=== PATIENT | female | born 1985 | race American Indian/Alaskan Native ===

== ENCOUNTER 2021-05-02 06:13 | Emergency (ER) | payer SELFPAY ==
[2021-05-02 07:04] LABS: Bilirubin,Urine NEG (Negative); Blood,Urine NEG (Negative); Color,Urine Yellow (Yellow); Mucus,Urine 1+ /HPF; Protein,Urine <15 mg/dL mg/dL (Negative); Urobilinogen,Urine < 2.0 mg/dL (<2.0)
[2021-05-02 07:49] LABS: Basophils % (Auto) 0.3 % (0.0-1.8); Eosinophils % (Auto) 0.1 % (0.0-4.3); Hematocrit 39.2 % (30.3-42.9); Hemoglobin 13.1 gm/dl (10.1-14.3); Lymphocytes # (Auto) 1.2 K/mm3 (1.2-5.4); Lymphocytes % (Auto) 10.5 % (13.4-35.0); Mean Corpuscular HGB Conc 33 % (30-34); Mean Corpuscular Volume 92 fl (79-97); Monocytes # (Auto) 0.4 K/mm3 (0.0-0.8); Monocytes % (Auto) 3.9 % (0.0-7.3); Platelet Count 187 K/mm3 (140-440); Red Blood Count 4.24 M/mm3 (3.65-5.03); Red Cell Distribution Width 13.8 % (13.2-15.2)
[2021-05-02 08:17] LABS: Alanine Aminotransferase 8 units/L (7-56); Albumin 4.5 g/dL (3.9-5); Blood Urea Nitrogen 10 mg/dL (7-17); Hemolysis Index 22
[2021-05-02] MEDS ORDERED: MORPHINE 4 MG/1 ML INJ IV ONE (08:19)
[2021-05-02] MEDS ORDERED: ONDANSETRON 4 MG/2 ML INJ IV ONE (08:19)
--- NOTE | 2021-05-02 08:23 | Emergency Department Report ---
<OSITOANNETTE - Last Filed: 05/04/21 06:23> ED General Adult HPI - General Chief complaint: Abdominal Pain Stated complaint: RT LOWER ABD PAIN/SWEATS/SOB Time Seen by Provider: 05/02/21 08:19 Source: patient Mode of arrival: Ambulatory Limitations: No Limitations - History of Present Illness Initial comments: 35-year-old -[place] female patient presents with complaints of right lower abdominal pain x2 days. Patient states the pain suddenly began to worsen last night and started radiating to her right flank area. She rates her current pain as 8/10 in severity states it worsens with movement and ambulation. No p ast medical history per patient. Past surgical history of the abdomen includes a . She denies any fever/chills/sweats, cough, shortness of breath, chest pain, diarrhea, melena/hematochezia, dysuria, hematuria, vaginal discharge/bleeding, or dyspareunia. Patient does admit to urinary frequency. OTC pain medications are not helping per patient. - Related Data Previous Rx's Medication Instructions Recorded Last Taken Type Acetaminophen/Codeine [Tylenol 1 tab PO Q8H PRN #8 tab 05/02/21 Unknown Rx /Codeine # 3 tab] Doxycycline Monohydrate 100 mg PO BID 14 Days #28 capsule 05/02/21 Unknown Rx [Doxycycline Monohydrate CAP] Ibuprofen [Motrin 800 MG tab] 800 mg PO Q8HR PRN #20 tablet 05/02/21 Unknown Rx metroNIDAZOLE [Flagyl TAB] 500 mg PO Q12HR 7 Days #14 tab 05/02/21 Unknown Rx Allergies Allergy/AdvReac Type Severity Reaction Status Date / Time No Known Allergies Allergy Unverified 05/02/21 06:28 ED Review of Systems Constitutional: denies: chills, diaphoresis, fever, malaise, weakness Respiratory: denies: cough, shortness of breath Cardiovascular: denies: chest pain Gastrointestinal: abdominal pain. denies: nausea, vomiting, diarrhea, constipation, hematemesis, melena, hematochezia Genitourinary: frequency. denies: urgency, dysuria, hematuria, discharge, abnormal menses Musculoskeletal: as per HPI Skin: denies: change in color Neurological: denies: headache Hematological/Lymphatic: denies: swollen glands ED Past Medical Hx - Past Medical History Previous Medical History?: No - Surgical History Past Surgical History?: No - Social History Smoking Status: Current Every Day Smoker Substance Use Type: None - Medications Home Medications: Home Medications Medication Instructions Recorded Confirmed Last Taken Type Acetaminophen/Codeine [Tylenol 1 tab PO Q8H PRN #8 tab 05/02/21 Unknown Rx /Codeine # 3 tab] Doxycycline Monohydrate 100 mg PO BID 14 Days #28 capsule 05/02/21 Unknown Rx [Doxycycline Monohydrate CAP] Ibuprofen [Motrin 800 MG tab] 800 mg PO Q8HR PRN #20 tablet 05/02/21 Unknown Rx metroNIDAZOLE [Flagyl TAB] 500 mg PO Q12HR 7 Days #14 tab 05/02/21 Unknown Rx ED Physical Exam - General Limitations: No Limitations General appearance: alert, in no apparent distress - Head Head exam: Present: atraumatic, normocephalic - Eye Eye exam: Present: normal appearance - ENT ENT exam: Present: mucous membranes moist - Neck Neck exam: Present: normal inspection - Respiratory Respiratory exam: Present: normal lung sounds bilaterally. Absent: respiratory distress - Cardiovascular Cardiovascular Exam: Present: regular rate, normal rhythm - GI/Abdominal GI/Abdominal exam: Present: soft, distended (Mild), tenderness (Right lower quadrant, periumbilical), normal bowel sounds. Absent: guarding, rebound, r igid, mass, pulsatile mass - Extremities Exam Extremities exam: Present: full ROM - Back Exam Back exam: Absent: CVA tenderness (R), CVA tenderness (L) - Neurological Exam Neurological exam: Present: alert, oriented X3, normal gait - Psychiatric Psychiatric exam: Present: normal affect, normal mood - Skin Skin exam: Present: warm, dry, intact, normal color. Absent: rash ED Medical Decision Making - Lab Data Result diagrams: 05/02/21 07:35 05/02/21 07:35 Lab Results 05/02/21 05/02/21 05/02/21 Range/Units 07:35 07:35 07:35 WBC 11.3 H (4.5-11.0) K/mm3 RBC 4.24 (3.65-5.03) M/mm3 Hgb 13.1 (10.1-14.3) gm/dl Hct 39.2 (30.3-42.9) % MCV 92 (79-97) fl MCH 31 (28-32) pg MCHC 33 (30-34) % RDW 13.8 (13.2-15.2) % Plt Count 187 (140-440) K/mm3 Lymph % (Auto) 10.5 L (13.4-35.0) % [place] % (Auto) 3.9 (0.0-7.3) % Eos % (Auto) 0.1 (0.0-4.3) % Baso % (Auto) 0.3 (0.0-1.8) % Lymph # (Auto) 1.2 (1.2-5.4) K/mm3 [place] # (Auto) 0.4 (0.0-0.8) K/mm3 Eos # (Auto) 0.0 (0.0-0.4) K/mm3 Baso # (Auto) 0.0 (0.0-0.1) K/mm3 Seg Neutrophils % 85.2 H (40.0-70.0) % Seg Neutrophils # 9.6 H (1.8-7.7) K/mm3 Sodium 139 (137-145) mmol/L Potassium 4.5 (3.6-5.0) mmol/L Chloride 105.2 (98-107) mmol/L Carbon Dioxide 25 (22-30) mmol/L Anion Gap 13 mmol/L BUN 10 (7-17) mg/dL Creatinine 0.7 (0.6-1.2) mg/dL Estimated GFR > 60 ml/min BUN/Creatinine Ratio 14 % Glucose 111 H (65-100) mg/dL Calcium 9.0 (8.4-10.2) mg/dL Total Bilirubin 0.20 (0.1-1.2) mg/dL AST 15 (5-40) units/L ALT 8 (7-56) units/L Alkaline Phosphatase 47 (35-129) units/L Total Protein 6.5 (6.3-8.2) g/dL Albumin 4.5 (3.9-5) g/dL Albumin/Globulin Ratio 2.3 % Lipase (13-60) units/L HCG, Qual Negative (Negative) Urine Color (Yellow) Urine Turbidity (Clear) Urine pH (5.0-7.0) Ur Specific [place] (1.003-1.030) Urine Protein (Negative) mg/dL Urine Glucose (UA) (Negative) mg/dL Urine Ketones (Negative) mg/dL Urine Blood (Negative) Urine Nitrite (Negative) Urine Bilirubin (Negative) Urine Urobilinogen (<2.0) mg/dL Ur Leukocyte Esterase (Negative) Urine WBC (Auto) (0.0-6.0) /HPF Urine RBC (Auto) (0.0-6.0) /HPF U Epithel Cells (Auto) (0-13.0) /HPF Urine Mucus /HPF 05/02/21 05/02/21 Range/Units 07:35 Unknown WBC (4.5-11.0) K/mm3 RBC (3.65-5.03) M/mm3 Hgb (10.1-14.3) gm/dl Hct (30.3-42.9) % MCV (79-97) fl MCH (28-32) pg MCHC (30-34) % RDW (13.2-15.2) % Plt Count (140-440) K/mm3 Lymph % (Auto) (13.4-35.0) % [place] % (Auto) (0.0-7.3) % Eos % (Auto) (0.0-4.3) % Baso % (Auto) (0.0-1.8) % Lymph # (Auto) (1.2-5.4) K/mm3 [place] # (Auto) (0.0-0.8) K/mm3 Eos # (Auto) (0.0-0.4) K/mm3 Baso # (Auto) (0.0-0.1) K/mm3 Seg Neutrophils % (40.0-70.0) % Seg Neutrophils # (1.8-7.7) K/mm3 Sodium (137-145) mmol/L Potassium (3.6-5.0) mmol/L Chloride (98-107) mmol/L Carbon Dioxide (22-30) mmol/L Anion Gap mmol/L BUN (7-17) mg/dL Creatinine (0.6-1.2) mg/dL Estimated GFR ml/min BUN/Creatinine Ratio % Glucose (65-100) mg/dL Calcium (8.4-10.2) mg/dL Total Bilirubin (0.1-1.2) mg/dL AST (5-40) units/L ALT (7-56) units/L Alkaline Phosphatase (35-129) units/L Total Protein (6.3-8.2) g/dL Albumin (3.9-5) g/dL Albumin/Globulin Ratio % Lipase 26 (13-60) units/L HCG, Qual (Negative) Urine Color Yellow (Yellow) Urine Turbidity Clear (Clear) Urine pH 5.0 (5.0-7.0) Ur Specific [place] 1.024 (1.003-1.030) Urine Protein <15 mg/dl (Negative) mg/dL Urine Glucose (UA) Neg (Negative) mg/dL Urine Ketones Neg (Negative) mg/dL Urine Blood Neg (Negative) Urine Nitrite Neg (Negative) Urine Bilirubin Neg (Negative) Urine Urobilinogen < 2.0 (<2.0) mg/dL Ur Leukocyte Esterase Neg (Negative) Urine WBC (Auto) 2.0 (0.0-6.0) /HPF Urine RBC (Auto) 1.0 (0.0-6.0) /HPF U Epithel Cells (Auto) 3.0 (0-13.0) /HPF Urine Mucus 1+ /HPF - Radiology Data Radiology results: report reviewed CT abdomen pelvis w con INDICATION: acute RLQ pain X2DAYS [id number] 100ML. COMPARISON: None TECHNIQUE: Abdominal and pelvic CT exam performed. All CT scans at this location are performed using CT dose reduction for ALARA by means of automated exposure control. FINDINGS: CT ABDOMEN and PELVIS: Lung Bases: No significant abnormality. Liver: No significant abnormality. Biliary: No significant abnormality. Spleen: No significant abnormality. Pancreas: No significant abnormality. Adrenals: No significant abnormality. Kidneys: No significant abnormality. Lymphatics: No lymphadenopathy. Vasculature: No significant abnormality. Bowel: No significant abnormality. Appendix is not well visualized. There is tubular region of air in the right lower quadrant which is thought to represent the appendix. No right lower quadrant stranding to suggest appendicitis. Pelvis: Small quantity of free fluid in the pelvis, likely physiologic. Nonspecific region of hypoattenuation within the right fundal region of the uterus could be related to mild dilation of the intramural portion of the fallopian tube. Right ovarian follicle Osseous Structures: No aggressive osseous lesion. Additional Findings: None IMPRESSION: 1. Hypoattenuating region within the right fundal portion of the uterus is nonspecific but could be related to mild dilation of the intramural portion of the fallopian tube. Correlate with ultrasound pelvis. Overall, no significant abnormality. US transvaginal, US pelvic complete INDICATION / CLINICAL INFORMATION: RLQ pain, abnormal CT. TECHNIQUE: Transabdominal and Transvaginal. Duplex Color Doppler used: Yes. COMPARISON: CT earlier same day FINDINGS: UTERUS: Measures 10.4 x 6.4 x 7.8 cm. -Endometrial stripe measures 1.3 cm. - Mass lesions: The previously described hypoattenuating region described on prior CT in the uterus corresponds an anechoic 1.6 cm lesion with through transmission. RIGHT ADNEXA: No significant ovarian cyst or mass. Normal color Doppler blood flow. LEFT ADNEXA: No significant ovarian cyst or mass. Normal color Doppler blood flow. URINARY BLADDER: No significant abnormality. FREE FLUID: None. ADDITIONAL FINDINGS: There are small hernia superior to the umbilicus in the region of patient's palpable concern. IMPRESSION: 1. Previously described abnormality on CT is most consistent with a myometrial cyst which is most likely related to cystic degeneration of a leiomyoma. Otherwise, no significant abnormality. 2. Small ventral wall abdominal hernias. - Medical Decision Making 35-year-old -[place] female patient presents with complaints of right lower abdominal pain x2 days. Patient states the pain suddenly began to worsen last night and started radiating to her right flank area. She rates her current pain as 8/10 in severity states it worsens with movement and ambulation. No p ast medical history per patient. Past surgical history of the abdomen includes a . She denies any fever/chills/sweats, cough, shortness of breath, chest pain, diarrhea, melena/hematochezia, dysuria, hematuria, vaginal discharge/bleeding, or dyspareunia. Patient does admit to urinary frequency. OTC pain medications are not helping per patient. Significant right lower quadrant tenderness to palpation noted on exam. Mildly elevated white count noted at 11.3. No significant abnormalities noted on CMP or UA. CT abdomen showed the following: Hypoattenuating region within the right fundal portion of the uterus is nonspecific but could be related to mild dilation of the intramural portion of the fallopian tube. Correlate with ultrasound pelvis. Overall, no significant abnormality. Given results ultrasound was performed of the pelvis and showed 1. Previously described abnormality on CT is most consistent with a myometrial cyst which is most likely related to cystic degeneration of a leiomyoma. Otherwise, no significant abnormality. Trichomonas noted on exam. Will treat for PID and cover patient for gonorrhea and chlamydia. Flagyl and doxy given for home. She is to follow-up with her [facility] in 2 to 3 days. Patient is well-appearing, her vitals are within normal limits, she is stable for discharge home. Discussed in great detail signs and symptoms that should prompt immediate return to the emergency department with patient who verbalizes understanding peer ED Disposition Clinical Impression: Trichomonal cervicitis, PID (acute pelvic inflammatory disease), Endometrial cyst of ovary Disposition: DC-01 TO HOME OR SELFCARE Is pt being admited?: No Condition: Stable Instructions: Ovarian Cyst, Trichomoniasis, Pelvic Inflammatory Disease, Abdominal Pain (ED) Prescriptions: Doxycycline Monohydrate [Doxycycline Monohydrate CAP] 100 mg PO BID 14 Days #28 capsule metroNIDAZOLE [Flagyl TAB] 500 mg PO Q12HR 7 Days #14 tab Ibuprofen [Motrin 800 MG tab] 800 mg PO Q8HR PRN #20 tablet PRN Reason: pain Acetaminophen/Codeine [Tylenol /Codeine # 3 tab] 1 tab PO Q8H PRN #8 tab PRN Reason: Pain , Severe (7-10) Referrals: PRIMARY CARE, [Primary Care Provider] - 3-5 Days [facility] [Provider Group] - 2-3 Days Forms: STI Treatment and Prevention <JOSE ANTONIO SADLER - Last Filed: 05/06/21 11:52> ED Review of Systems ROS: Stated complaint: RT LOWER ABD PAIN/SWEATS/SOB Other details as noted in HPI ED Course Vital Signs 05/02/21 05/02/21 05/02/21 06:34 08:50 13:09 Temperature 98.1 F Pulse Rate 58 L Respiratory 18 16 16 Rate Blood Pressure 137/75 Blood Pressure [Right] O2 Sat by Pulse 100 Oximetry 05/02/21 15:02 Temperature Pulse Rate 65 Respiratory 16 Rate Blood Pressure Blood Pressure 124/79 [Right] O2 Sat by Pulse 100 Oximetry ED Medical Decision Making - Lab Data Result diagrams: 05/02/21 07:35 05/02/21 07:35 Critical care attestation.: If time is entered above; I have spent that time in minutes in the direct care of this critically ill patient, excluding procedure time. ED Disposition Is pt being admited?: No Does the pt Need Aspirin: No
[2021-05-02 08:30] LABS: BUN/Creatinine Ratio 14
--- NOTE | 2021-05-02 11:54 | Cat Scan Report ---
CT abdomen pelvis w con INDICATION: acute RLQ pain X2DAYS [id number] 100ML. COMPARISON: None TECHNIQUE: Abdominal and pelvic CT exam performed. All CT scans at this location are performed using CT dose reduction for ALARA by means of automated exposure control. FINDINGS: CT ABDOMEN and PELVIS: Lung Bases: No significant abnormality. Liver: No significant abnormality. Biliary: No significant abnormality. Spleen: No significant abnormality. Pancreas: No significant abnormality. Adrenals: No significant abnormality. Kidneys: No significant abnormality. Lymphatics: No lymphadenopathy. Vasculature: No significant abnormality. Bowel: No significant abnormality. Appendix is not well visualized. There is tubular region of air i n the right lower quadrant which is thought to represent the appendix. No right lower quadrant strand ing to suggest appendicitis. Pelvis: Small quantity of free fluid in the pelvis, likely physiologic. Nonspecific region of hypoatt enuation within the right fundal region of the uterus could be related to mild dilation of the intram ural portion of the fallopian tube. Right ovarian follicle Osseous Structures: No aggressive osseous lesion. Additional Findings: None IMPRESSION: 1. Hypoattenuating region within the right fundal portion of the uterus is nonspecific but could be r elated to mild dilation of the intramural portion of the fallopian tube. Correlate with ultrasound pe lvis. Overall, no significant abnormality. Signer Name: Jhon Bergman MD Signed: 05/02/2021 11:50 AM Workstation Name: [id number]
[2021-05-02] MEDS ORDERED: KETOROLAC 30 MG/1 ML INJ IV ONE (12:07)
--- NOTE | 2021-05-02 14:40 | Ultrasound Report ---
US transvaginal, US pelvic complete INDICATION / CLINICAL INFORMATION: RLQ pain, abnormal CT. TECHNIQUE: Transabdominal and Transvaginal. Duplex Color Doppler used: Yes. COMPARISON: CT earlier same day FINDINGS: UTERUS: Measures 10.4 x 6.4 x 7.8 cm. -Endometrial stripe measures 1.3 cm. - Mass lesions: The previously described hypoattenuating region described on prior CT in the uterus c orresponds an anechoic 1.6 cm lesion with through transmission. RIGHT ADNEXA: No significant ovarian cyst or mass. Normal color Doppler blood flow. LEFT ADNEXA: No significant ovarian cyst or mass. Normal color Doppler blood flow. URINARY BLADDER: No significant abnormality. FREE FLUID: None. ADDITIONAL FINDINGS: There are small hernia superior to the umbilicus in the region of patient's palp able concern. IMPRESSION: 1. Previously described abnormality on CT is most consistent with a myometrial cyst which is most lik alexis related to cystic degeneration of a leiomyoma. Otherwise, no significant abnormality. 2. Small ventral wall abdominal hernias. Signer Name: Jhon Bergman MD Signed: 05/02/2021 2:35 PM Workstation Name: [id number]
[2021-05-02 15:02] VITALS: BP 124/79
[2021-05-02] MEDS ORDERED: LIDOCAINE-MPF (1%) 10 MG/1 ML VIAL 5 ML INFILTRATI ONE (15:14)
== END 2021-05-02 15:33 | disposition home or self-care (01) ==
LOC: ED 06:13
DX: A59.09 Other urogenital trichomoniasis (principal); N80.1 Endometriosis of ovary; N73.0 Acute parametritis and pelvic cellulitis; F17.200 Nicotine dependence, unspecified, uncomplicated; Z79.899 Other long term (current) drug therapy
CPT/HCPCS: 36415; 74177; 76830; 76856; 80053; 81001; 83690; 84703; 85025; 87210; 87591; 96372; 96374; 96375; 99284; J0696; J1885; J2270; J2405; Q9967